=== PATIENT | male | born 1955 | race Caucasian/White ===

== ENCOUNTER 2023-05-10 06:27 | Emergency (ER) | payer BC, MEDICARE, SELFPAY ==
[2023-05-10 06:37] VITALS: BP 116/76; PULSE 69; RESP 18; TEMP 37.5; O2SAT 96
--- NOTE | 2023-05-10 06:39 | XR_ITS ---
WS: [id number] Portable AP upright chest, 05/10/2023 Clinical Data: dyspnea/cough Comparison: None. Findings: No nodules, masses or effusions are seen. The heart is normal. The pulmonary vascularity is not increased. No pneumonia or pneumothorax is seen. The aortic arch and descending thoracic aorta s how tortuosity. The diaphragms are flattened. Impression: Atherosclerosis and hyperinflation.
--- NOTE | 2023-05-10 06:48 | ED_ITS ---
HPI - URI/Sore Throat 2 General: Chief Complaint: Upper Respiratory Infection Stated Complaint: cough, N/V,Fever, fell Time Seen by Provider: 05/10/23 06:36 Source: patient Mode of arrival: ambulatory History of Present Illness: 67-year-old male presents emergency room complaining of cough nausea and vomiting and fever. Symptoms began yesterday. Patient arrived by private vehicle he had a ground-level mechanical fall this morning after taking Dramamine and cold medications for dizziness and lightheadedness he stumbled over the dog bed. He denies any injury when he fell. No vomiting or diarrhea generalized myalgias noted. Does have a low-grade fever on arrival here. Patient states she has a history of vertigo is worsened by the cough cold symptoms began to have a took a Dramamine about an hour ago. MD elicited complaint: fever and cough Onset (ago): minute(s) Consistency: constant Severity: mild Exacerbating factors: nothing Relieving factors: nothing Associated symptoms: Reports fever(s) and nasal congestion; Deny abdominal pain, change in voice, chills, chest pain, congestion, cough, diarrhea, epistaxis, ear or mastoid pain, headache(s), myalgias, nausea, rash, rhinorrhea, short of breath, sinus pain, stiffness, sore throat or vomiting Treatments prior to arrival: other Review of Systems 2 Const: Reports: fever(s), fatigue and malaise; Denies: chills ENMT: Reports: nasal congestion; Denies: ear or mastoid pain, epistaxis or sinus pain Card: Denies: chest pain Resp: Reports: non-productive cough; Denies: dyspnea GI: Denies: abdominal pain, nausea, vomiting or diarrhea : Denies: dysuria, urinary frequency or urinary urgency Musc: Denies: neck pain or back pain Skin/Breast: Denies: rash Neuro: Reports: vertigo; Denies: headache(s) Physical Exam 2 Const: COMMON NORMALS: no acute distress GENERAL APPEARANCE: cooperative and comfortable ORIENTATION/CONSCIOUSNESS: Yes awake, Yes oriented to person, Yes oriented to place and Yes oriented to time HENMT: COMMON NORMALS: normocephalic, atraumatic and hearing grossly normal bilaterally HEAD & SCALP: normocephalic and atraumatic Resp: COMMON NORMALS: normal respiratory effort, No retractions, No use of accessory muscles and clear to auscultation bilaterally AUSCULTATION: clear to auscultation bilaterally Cardio: COMMON NORMALS: regular rate, regular rhythm and No murmurs present (Cardio) RATE: regular rate RHYTHM: regular rhythm GI: COMMON NORMALS: Soft to palpation and No hepatosplenomegaly present A USCULTATION: Yes normoactive bowel sounds PALPATION: Yes Soft to palpation, No Tenderness to palpation present (GI), No Guarding due to palpation present (GI) and Yes No hepatosplenomegaly present Extremity: COMMON NORMALS: normal to inspection, capillary refill normal, no clubbing, cyanosis or edema, no calf tenderness and no pedal edema Neuro: SENSORIUM/ORIENTATION: Yes oriented to person, Yes oriented to place and Yes oriented to time Skin: COMMON NORMALS: no rashes or lesions noted GENERAL SKIN EXAM: no rashes or lesions noted Course 2 Vital Signs: Vital signs: Vital Signs Temperature 99.5 F 05/10/23 06:37 Pulse Rate 69 05/10/23 06:37 Respiratory Rate 18 05/10/23 06:37 Blood Pressure 116/76 05/10/23 06:37 Pulse Oximetry 96 05/10/23 06:37 MDM - URI/Sore Throat Medical Decision Making Labs and imaging reviewed chest x-ray normal no clinically significant lab abnormalities flu swab negative. Mild leukocytosis potentially suggestive of COVID COVID swab pending we will discharge patient home follow-up with primary care if not improving will call in [facility] if his COVID result is positive. Medical Records I reviewed the patient's medical records. Lab Data I reviewed the patient's lab results. 05/10/23 06:57 05/10/23 06:57 Laboratory Results WBC 7.50 10^3/uL (3.29-11.43) 05/10/23 06:57 RBC 4.77 10^6/uL (3.85-5.65) 05/10/23 06:57 Hgb 15.40 g/dL (11.27-16.99) 05/10/23 06:57 Hct 42.8 % (37-53) 05/10/23 06:57 MCV 89.7 fl (82-101) 05/10/23 06:57 MCH 32.3 pg (27-33) 05/10/23 06:57 MCHC 36.0 g/dL (30-55) 05/10/23 06:57 RDW 11.8 % (12.1-15.1) L 05/10/23 06:57 Plt Count 149 10^3/cmm (157-399) L 05/10/23 06:57 MPV 10.3 fL (7.4-10.4) 05/10/23 06:57 Neut % (Auto) 78.2 % 05/10/23 06:57 Lymph % (Auto) 5.3 % 05/10/23 06:57 Keith % (Auto) 15.3 % 05/10/23 06:57 Eos % (Auto) 0.0 % 05/10/23 06:57 Baso % (Auto) 0.5 % 05/10/23 06:57 Neut # (Auto) 5.86 10^3/uL (1.8-7.7) 05/10/23 06:57 Lymph # (Auto) 0.4 10^3/uL (0.8-4.8) L 05/10/23 06:57 Keith # (Auto) 1.2 10^3/uL (0.2-0.9) H 05/10/23 06:57 Eos # (Auto) 0.0 10^3/uL (0.0-0.8) 05/10/23 06:57 Baso # (Auto) 0.0 10^3/uL (0.0-0.1) 05/10/23 06:57 Nucleated RBC % (auto) 0 % 05/10/23 06:57 Nucleated RBCs # 0.0 /100WBC 05/10/23 06:57 Sodium 130 mmol/L (136-145) L 05/10/23 06:57 Potassium 4.1 mmol/L (3.5-5.1) 05/10/23 06:57 Chloride 96 mmol/L (98-107) L 05/10/23 06:57 Carbon Dioxide 21 mmol/L (22-29) L 05/10/23 06:57 Anion Gap 17.1 (5-19) 05/10/23 06:57 BUN 12 mg/dL (8-23) 05/10/23 06:57 Creatinine 1.0 mg/dL (0.7-1.2) 05/10/23 06:57 GFR Calculation 75.0 mL/min (90-130) L 05/10/23 06:57 Glucose 131 mg/dL (65-115) H 05/10/23 06:57 Calculated Osmolality 272 mOsm/kg (285-295) L 05/10/23 06:57 Calcium 8.8 mg/dL (8.5-10.5) 05/10/23 06:57 Total Bilirubin 0.7 mg/dL (0.15-1.2) 05/10/23 06:57 AST 21 U/L (0-40) 05/10/23 06:57 ALT 14 U/L (0-41) 05/10/23 06:57 Alkaline Phosphatase 64 U/L (40-130) 05/10/23 06:57 Total Protein 6.7 g/dL (6.6-8.7) 05/10/23 06:57 Albumin 4.2 g/dL (3.5-5.2) 05/10/23 06:57 Globulin 2.5 g/dL (1.3-4.6) 05/10/23 06:57 Influenza Type A Ag negative (Negative) 05/10/23 07:12 Influenza Type B Ag negative (Negative) 05/10/23 07:12 All radiology interpretation(s) finalized by discharge Discharge Plan Discharge Patient Disposition: Home Clinical Impression: Upper respiratory infection Condition: Stable Prescriptions: Discontinued doxycycline hyclate 100 mg tablet 100 mg PO BID 7 Days Qty: 14 0RF Discharge Orders: Discharge ED (Routine); Ordered 05/10/23 Ordered By: Deacon Hernandez Referrals: Gissell Dahl MD [Primary Care Provider] - Discharge Diet: Usual diet Discharge Activity: Increase activity as tolerated Patient Instructions: Opioid Safety, Pain Management Activity Restrictions/Additional Instructions: Thank you for choosing [facility] for your healthcare needs today. Please realize this is an emergency room and that we are providing you with a medical screening exam and this may not be complete and all inclusive of all the testing and or work up that you may need to determine your ailment or severity of your illness. It is very important that you follow up as instructed or that you return to the Emergency Department should you have concerns or if your condition changes or worsens in any way. You are seen today for generally not feeling well with nausea and vomiting. Laboratory studies did not show significant abnormality. Suspect he may have a viral upper respiratory infection potentially COVID. Your flu swab was negative. Chest x-ray was normal. Will discharge home contact to the COVID result once it is completed. Supportive cares [id number] cough cold medications Tylenol or Profen for fever maintain adequate fluid. Return to your primary care doctor if you have persistent problems. Coding Level of Care Code ED [employer] for Michael Rahman
[2023-05-10 07:07] LABS: Basophils % 0.5 %; Hematocrit 42.8 % (37-53); Lymphocytes # 0.4 10^3/uL (0.8-4.8); Lymphocytes % 5.3 %; Mean Corpuscular Hemoglobin 32.3 pg (27-33); Mean Corpuscular Volume 89.7 fl (82-101); Mean Platelet Volume 10.3 fL (7.4-10.4); Monocytes # 1.2 10^3/uL (0.2-0.9); Monocytes % 15.3 %; Neutrophils # 5.86 10^3/uL (1.8-7.7); Neutrophils % 78.2 %; Nucleated Red Blood Cells % 0 %; Platelet Count 149 10^3/cmm (157-399); Red Blood Count 4.77 10^6/uL (3.85-5.65); Red Cell Distribution Width 11.8 % (12.1-15.1)
[2023-05-10 07:20] LABS: Alanine Aminotransferase 14 U/L (0-41); Albumin Level 4.2 g/dL (3.5-5.2); Alkaline Phosphatase 64 U/L (40-130); Anion Gap 17.1 (5-19); Aspartate Amino Transferase 21 U/L (0-40); Blood Urea Nitrogen 12 mg/dL (8-23); Calcium 8.8 mg/dL (8.5-10.5); Carbon Dioxide 21 mmol/L (22-29); Chloride 96 mmol/L (98-107); Globulin 2.5 g/dL (1.3-4.6); Glucose 131 mg/dL (65-115); Osmolality Calculated 272 mOsm/kg (285-295); Potassium 4.1 mmol/L (3.5-5.1); Sodium 130 mmol/L (136-145); Total Bilirubin 0.7 mg/dL (0.15-1.2); Total Protein 6.7 g/dL (6.6-8.7)
[2023-05-10 07:40] LABS: Influenza A by IFA negative (Negative); Influenza B by IFA negative (Negative)
[2023-05-10] MEDS: acetaminophen 500 mg Tablet 1000 MG PO (08:03)
[2023-05-10 09:04] LABS: Adenovirus Not Detected (NOT DETECT); Chlamydia Pneumoniae Not Detected (NOT DETECT); Coronavirus 229E,HKU1,NL63,OC4 Not Detected (NOT DETECT); Human Metapneumovirus Not Detected (NOT DETECT); Human Rhinovirus/Enterovirus Not Detected (NOT DETECT); Influenza A Not Detected (NOT DETECT); Influenza A H1 Not Detected (NOT DETECT); Influenza A H1-2009 Not Detected (NOT DETECT); Influenza A H3 Not Detected (NOT DETECT); Influenza B Not Detected (NOT DETECT); Mycoplasma Pneumoniae Not Detected (NOT DETECT); Parainfluenza Virus Type 1 Not Detected (NOT DETECT); Parainfluenza Virus Type 2 Not Detected (NOT DETECT); Parainfluenza Virus Type 3 Not Detected (NOT DETECT); Parainfluenza Virus Type 4 Not Detected (NOT DETECT); Respiratory Syncytial Virus A Not Detected (NOT DETECT); Respiratory Syncytial Virus B Not Detected (NOT DETECT)
[2023-05-10 09:09] LABS: SARS-COV-2 Detected (NOT DETECT)
--- NOTE | 2023-05-10 09:44 | PC.NURSE ---
Received positive COVID lab results for this patient, after the patient had been discharged. I let Dr. Hernandez know and he had me call in a prescription for Paxlovid for the patient. I notified the patient of their positive COVID test and called the Paxlovid in to [facility] in [place], [place].
--- NOTE | 2023-05-10 13:00 | PC.NURSE ---
RX REN CALLED INTO [facility] AT [address] [place] [address].
== END 2023-05-10 08:04 | disposition home or self-care (01) ==
PROVIDERS: Emergency Provider Family Medicine; PCP Family Medicine
DX: U07.1 COVID-19 (principal)
CPT/HCPCS: 71045; 80053; 85025; 87635; 87804; 99284